=== PATIENT | male | born 1985 | race Caucasian/White ===

== ENCOUNTER 2019-01-14 20:32 | Emergency (ER) | payer SELFPAY ==
[~2019-01-14] VITALS: Ht 167.6 cm; Wt 86.4 kg
[2019-01-14 20:44] VITALS: TEMP 98.5
[2019-01-14 22:47] LABS: COLLECTION METHOD CLEAN CATCH
[2019-01-14 22:51] LABS: BASO # 0.1 (0.0-0.2); BASO % 0.8 % (0.0-2.0); EOS # 0.2 (0.0-0.7); EOS % 1.6 % (0-4.0); GRAN # 6.8 (1.4-6.5); GRAN % 63.2 % (42.2-75.2); HEMATOCRIT 49.8 % (42.0-52.0); HEMOGLOBIN 16.4 g/dl (13.5-18.0); LYMPH # 3.2 (1.2-3.4); LYMPH % 30.2 % (20.0-51.0); MEAN CELL VOLUME 89 fl (80.0-100.0); MEAN CORPUSCULAR HEMOGLOBIN 29 pg (27.0-31.0); MEAN CORPUSCULAR HGB CONC 33 g/dl (33.0-37.0); MEAN PLATELET VOLUME 10.9 fl (7.4-10.4); MONO # 0.4 (0.1-0.6); MONO % 3.9 % (1.7-9.3); PLATELET COUNT 229 K/mm3 (130-400); RED BLOOD COUNT 5.57 M/mm3 (4.20-5.60); REDCELL DISTRIBUTION WIDTH-CV 12.8 % (11.5-14.5)
[2019-01-14 23:00] LABS: MUCOUS Present /lpf; PH 5 (5-8); SQUAMOUS EPITHELIAL 0-2 /hpf; URINE APPEARANCE Clear; URINE BACTERIA None Seen /hpf; URINE BILIRUBIN Negative (NEGATIVE); URINE BLOOD Negative (NEGATIVE); URINE COLOR Yellow; URINE GLUCOSE Negative (NEGATIVE); URINE KETONE Negative (NEGATIVE); URINE LEUKOCYTE ESTERASE Negative (NEGATIVE); URINE NITRATE Negative (NEGATIVE); URINE PROTEIN(semi-quant) Negative (NEGATIVE); URINE RBC 0-2 /hpf; URINE UROBILINOGEN Negative (NEGATIVE)
[2019-01-14 23:02] LABS: TRICYCLIC ANTIDEPRESS URINE NEGATIVE
[2019-01-14 23:06] LABS: ACETAMINOPHEN < 10 ug/mL (10-30); ALANINE AMINOTRANSFERASE 28 U/L (21-72); ALBUMIN 4.4 gm/dL (3.5-5.0); ALCOHOL(ethanol),MEDICAL < 10 mg/dL; ALKALINE PHOSPHATASE 108 U/L (50-136); ANION GAP 9 mmol/L (7-16); AST,SGOT 26 U/L (15-37); BILIRUBIN,TOTAL 0.5 mg/dL (0.0-1.0); BLOOD UREA NITROGEN 13 mg/dL (9-20); CALCIUM 9.3 mg/dL (8.4-10.2); CARBON DIOXIDE 29 mmol/L (22-30); CHLORIDE 101 mmol/L (98-107); CREATININE, serum 0.82 mg/dL (0.66-1.25); GLUCOSE 73 mg/dL (74-106); SALICYLATE < 1.0 mg/dL; SODIUM 139 mmol/L (137-145); TOTAL PROTEIN 7.8 gm/dL (6.4-8.2)
[2019-01-15 03:30] VITALS: BP 150/87; PULSE 88
== END 2019-01-15 03:30 | disposition home or self-care (01) ==
LOC: COL.ER 20:32
PROVIDERS: Emergency Medicine
DX: R45.851 Suicidal ideations (principal); F32.9 Major depressive disorder, single episode, unspecified

== ENCOUNTER 2019-04-10 00:18 | Emergency (ER) | payer SELFPAY ==
[~2019-04-10] VITALS: Ht 167.6 cm; Wt 85.9 kg
[2019-04-10 00:23] VITALS: BP 145/105; TEMP 97
[2019-04-10 01:18] LABS: COLLECTION METHOD CLEAN CATCH
[2019-04-10 01:28] LABS: HYALINE CAST >12 /lpf; MUCOUS Present /lpf; PH 5 (5-8); SQUAMOUS EPITHELIAL None Seen /hpf; URINE APPEARANCE Turbid; URINE BACTERIA None Seen /hpf; URINE BILIRUBIN Negative (NEGATIVE); URINE BLOOD 2+ (NEGATIVE); URINE COLOR Yellow; URINE GLUCOSE Negative (NEGATIVE); URINE KETONE Negative (NEGATIVE); URINE LEUKOCYTE ESTERASE 2+ (NEGATIVE); URINE NITRATE Negative (NEGATIVE); URINE PROTEIN(semi-quant) 2+ (NEGATIVE); URINE RBC >50 /hpf; URINE UROBILINOGEN Negative (NEGATIVE)
[2019-04-10 01:50] VITALS: PULSE 90
== END 2019-04-10 01:50 | disposition home or self-care (01) ==
LOC: COL.ER 00:18
PROVIDERS: Physician Assistant
DX: N34.2 Other urethritis (principal)
CPT/HCPCS: J0696

== ENCOUNTER 2019-06-03 01:15 | Observation (INO) | payer SELFPAY ==
[~2019-06-03] VITALS: Ht 167.6 cm; Wt 78.9 kg
[2019-06-03] MEDS ORDERED: PROZAC 10MG10 MG PO (01:26)
[2019-06-03 01:54] LABS: BASO # 0.1 (0.0-0.2); BASO % 0.4 % (0.0-2.0); EOS # 0.1 (0.0-0.7); EOS % 0.4 % (0-4.0); GRAN # 13.9 (1.4-6.5); GRAN % 76.6 % (42.2-75.2); HEMATOCRIT 48.8 % (42.0-52.0); HEMOGLOBIN 16.6 g/dl (13.5-18.0); LYMPH # 2.7 (1.2-3.4); LYMPH % 14.7 % (20.0-51.0); MEAN CELL VOLUME 86 fl (80.0-100.0); MEAN CORPUSCULAR HEMOGLOBIN 29 pg (27.0-31.0); MEAN CORPUSCULAR HGB CONC 34 g/dl (33.0-37.0); MEAN PLATELET VOLUME 10.6 fl (7.4-10.4); MONO # 1.3 (0.1-0.6); MONO % 7.4 % (1.7-9.3); PLATELET COUNT 242 K/mm3 (130-400); RED BLOOD COUNT 5.65 M/mm3 (4.20-5.60); REDCELL DISTRIBUTION WIDTH-CV 13.1 % (11.5-14.5)
[2019-06-03 02:05] LABS: BILIRUBIN,TOTAL 0.9 mg/dL (0.0-1.0); CALCIUM 10.1 mg/dL (8.4-10.2); CREATININE, serum 1.95 (0.66-1.25); POTASSIUM 5.3 mmol/L (3.4-5.0); TOTAL PROTEIN 8.6 gm/dL (6.4-8.2)
[2019-06-03 02:17] LABS: TROPONIN-I 0.054 ng/mL (0.000-0.035)
[2019-06-03 03:50] LABS: COLLECTION METHOD CLEAN CATCH
[2019-06-03 03:57] LABS: MUCOUS Present /lpf; PH 5 (5-8); SQUAMOUS EPITHELIAL None Seen /hpf; URINE APPEARANCE Clear; URINE BACTERIA None Seen /hpf; URINE BILIRUBIN Negative (NEGATIVE); URINE BLOOD Negative (NEGATIVE); URINE COLOR Yellow; URINE GLUCOSE Negative (NEGATIVE); URINE KETONE 1+ (NEGATIVE); URINE LEUKOCYTE ESTERASE Negative (NEGATIVE); URINE NITRATE Negative (NEGATIVE); URINE PROTEIN(semi-quant) Negative (NEGATIVE); URINE RBC 0-2 /hpf; URINE UROBILINOGEN Negative (NEGATIVE)
[2019-06-03 04:05] LABS: TRICYCLIC ANTIDEPRESS URINE NEGATIVE
[2019-06-03 06:07] VITALS: BP 94/50; PULSE 97; TEMP 98.6
--- NOTE | 2019-06-03 08:30 | NUR ---
Patient alert and oriented, answers questions appropriately. See assessment. No c/o vertigo. No chest pain or pressure. No c/o jaw or shoulder pain. Heart tones strong and even, pulses palpable. Left ankle ROM WNL, slight edema noted, minimal bruising noted. FWB. No c/o at this time.
[2019-06-03 08:31] VITALS: BP 125/67; PULSE 90; TEMP 98.4
--- NOTE | 2019-06-03 09:16 | NUR ---
Dr Godoy notified of consult.
[2019-06-03 09:31] LABS: HIV 1/2 Antibodies Non-Reactive; HIV-1p24 Antigen Non-Reactive
--- NOTE | 2019-06-03 11:54 | NUR ---
Plan: Plan is to return home, independently. Assess: Client report he does not have a PCP. Client indicated that he has a heart monitor. Patient indicated that he walks. Client states he would need help with medications due to no insurance. Action: SW will help patient obtained medications and make referral to [facility] for patient. SW gave patient community resources for services and voucher for medications. Patient indicated that he does not have a phone. Best contact
[2019-06-03 12:03] LABS: BASO # 0.1 (0.0-0.2); BASO % 0.4 % (0.0-2.0); EOS # 0.2 (0.0-0.7); EOS % 1.6 % (0-4.0); GRAN # 8.1 (1.4-6.5); GRAN % 65.4 % (42.2-75.2); HEMATOCRIT 44.1 % (42.0-52.0); HEMOGLOBIN 15.2 g/dl (13.5-18.0); LYMPH # 3.1 (1.2-3.4); LYMPH % 25.1 % (20.0-51.0); MEAN CELL VOLUME 86 fl (80.0-100.0); MEAN CORPUSCULAR HEMOGLOBIN 30 pg (27.0-31.0); MEAN CORPUSCULAR HGB CONC 35 g/dl (33.0-37.0); MEAN PLATELET VOLUME 10.7 fl (7.4-10.4); MONO # 0.9 (0.1-0.6); MONO % 7.3 % (1.7-9.3); PLATELET COUNT 213 K/mm3 (130-400); RED BLOOD COUNT 5.13 M/mm3 (4.20-5.60); REDCELL DISTRIBUTION WIDTH-CV 13.1 % (11.5-14.5)
[2019-06-03 12:14] LABS: CALCIUM 8.8 mg/dL (8.4-10.2); CREATININE, serum 0.93 (0.66-1.25); POTASSIUM 3.9 mmol/L (3.4-5.0)
[2019-06-03 12:26] LABS: TROPONIN-I 0.025 ng/mL (0.000-0.035)
[2019-06-03 12:35] VITALS: BP 129/59; PULSE 85; TEMP 98.6
[2019-06-03 17:35] VITALS: BP 118/70; PULSE 87; TEMP 98.7
--- NOTE | 2019-06-03 19:30 | NUR ---
Patient report received from RUDY Molina at shift change. Upon assessment at this time patient is resting comfortably in bed. Reports some soreness to Left ankle, marti wrap and ice provided per patient request. IV fluids infusing into right hand IV. Tele in place, NSR @ 97. Patient ate everything on dinner tray. No other needs reported.
[2019-06-04 00:03] VITALS: BP 113/95; PULSE 75; TEMP 98.3
[2019-06-04 04:34] VITALS: BP 126/74; PULSE 76; TEMP 97.8
--- NOTE | 2019-06-04 06:50 | NUR ---
Report given to Tracy GRANT. Pt sleeping. No distress noted.
[2019-06-04 07:01] LABS: BASO # 0.1 (0.0-0.2); BASO % 0.7 % (0.0-2.0); EOS # 0.3 (0.0-0.7); EOS % 3.8 % (0-4.0); GRAN # 3.8 (1.4-6.5); GRAN % 52.8 % (42.2-75.2); HEMATOCRIT 41.9 % (42.0-52.0); HEMOGLOBIN 13.9 g/dl (13.5-18.0); LYMPH # 2.4 (1.2-3.4); LYMPH % 33.3 % (20.0-51.0); MEAN CELL VOLUME 88 fl (80.0-100.0); MEAN CORPUSCULAR HEMOGLOBIN 29 pg (27.0-31.0); MEAN CORPUSCULAR HGB CONC 33 g/dl (33.0-37.0); MEAN PLATELET VOLUME 11.8 fl (7.4-10.4); MONO # 0.7 (0.1-0.6); MONO % 9.1 % (1.7-9.3); PLATELET COUNT 169 K/mm3 (130-400); RED BLOOD COUNT 4.75 M/mm3 (4.20-5.60); REDCELL DISTRIBUTION WIDTH-CV 13.2 % (11.5-14.5)
[2019-06-04 07:14] LABS: CALCIUM 8.6 mg/dL (8.4-10.2); CREATININE, serum 0.66 (0.66-1.25); POTASSIUM 4.2 mmol/L (3.4-5.0)
[2019-06-04 07:17] VITALS: BP 111/75; PULSE 72; TEMP 98
--- NOTE | 2019-06-04 09:00 | NUR ---
Patient alert and oriented, answers questions appropriately. See assessment. No c/o pain or discomfort at this time.
[2019-06-04 11:04] VITALS: BP 104/73; PULSE 75; TEMP 98.2
--- NOTE | 2019-06-04 12:49 | NUR ---
Discharge instructions reviewed with patient, verbalized understanding. Discharged ambulatory to auto/home with friend at 1250.
== END 2019-06-04 12:50 | disposition home or self-care (01) ==
LOC: COL.ER 01:15 → MEDICAL 02:32
PROVIDERS: Emergency Medicine; Nurse Practitioner; Nurse Practitioner Family; ADMIT Student in an Organized Health Care Education/Training Program
DX: R07.89 Other chest pain (principal); N17.9 Acute kidney failure, unspecified; E87.5 Hyperkalemia; D72.829 Elevated white blood cell count, unspecified; F15.10 Other stimulant abuse, uncomplicated; R42 Dizziness and giddiness; M25.572 Pain in left ankle and joints of left foot; X50.0XXA Overexertion from strenuous movement or load, initial encounter; F41.0 Panic disorder [episodic paroxysmal anxiety]; I08.1 Rheumatic disorders of both mitral and tricuspid valves; F17.210 Nicotine dependence, cigarettes, uncomplicated; Z88.0 Allergy status to penicillin
CPT/HCPCS: G0378; J7030

== ENCOUNTER 2024-07-23 19:35 | Emergency (ER) | payer SELFPAY ==
[~2024-07-23] VITALS: Ht 167.6 cm; Wt 80.5 kg
[~2024-07-23 19:35] MED LIST: PROZAC 10MG10 MG PO
[2024-07-23 19:48] VITALS: TEMP 98.3
[2024-07-23 20:57] VITALS: BP 140/90; PULSE 95
== END 2024-07-23 20:57 | disposition home or self-care (01) ==
LOC: COL.ER 19:35
DX: F41.9 Anxiety disorder, unspecified (principal)